=== PATIENT | female | born 1990 | race American Indian/Alaskan Native ===

== ENCOUNTER 2019-10-18 14:56 | Outpatient (CLI) | payer MEDICAID ==
[2019-10-18] MEDS ORDERED: BETAMET ACET/BETAMET NA PH 6 MG/ML INJ 5 ML MDV IM ONE (17:56)
== END 2019-10-18 18:36 | disposition home or self-care (01) ==
LOC: TRG 14:56
PROVIDERS: ATTEND Obstetrics & Gynecology
DX: O47.03 False labor before 37 completed weeks of gestation, third trimester (principal); Z3A.30 30 weeks gestation of pregnancy
CPT/HCPCS: J0702

== ENCOUNTER 2019-11-16 18:44 | Outpatient (CLI) | payer MEDICAID ==
[2019-11-16 19:39] VITALS: BP 119/75
== END 2019-11-16 19:52 | disposition home or self-care (01) ==
LOC: TRG 18:44
PROVIDERS: ATTEND Obstetrics & Gynecology
DX: O13.3 Gestational [pregnancy-induced] hypertension without significant proteinuria, third trimester (principal); O47.03 False labor before 37 completed weeks of gestation, third trimester; Z3A.35 35 weeks gestation of pregnancy
CPT/HCPCS: 59025

== ENCOUNTER 2019-11-27 12:09 | Outpatient (CLI) | payer MEDICAID ==
[2019-11-27] MEDS ORDERED: LACTATED RINGERS 1,000 ML IV SCH (13:00)
[2019-11-27 13:40] LABS: Hematocrit 35.3 % (30.3-42.9); Mean Corpuscular HGB Conc 34 % (30-34); Mean Corpuscular Volume 91 fl (79-97); Platelet Count 195 K/mm3 (140-440); Red Blood Count 3.88 M/mm3 (3.65-5.03); Red Cell Distribution Width 12.6 % (13.2-15.2)
[2019-11-27 13:44] LABS: Bilirubin,Urine NEG (Negative); Blood,Urine NEG (Negative); Color,Urine Straw (Yellow); Protein,Urine <15 mg/dL mg/dL (Negative); Urobilinogen,Urine < 2.0 mg/dL (<2.0); WBC,Urine < 1.0 /HPF (0.0-6.0)
[2019-11-27 14:04] LABS: Uric Acid 3.6 mg/dL (3.5-7.6)
[2019-11-27 14:12] LABS: Alanine Aminotransferase < 5 units/L (7-56)
[2019-11-27 14:25] VITALS: BP 126/85
== END 2019-11-27 14:57 | disposition home or self-care (01) ==
LOC: TRG 12:09
PROVIDERS: ATTEND Obstetrics & Gynecology
DX: O13.3 Gestational [pregnancy-induced] hypertension without significant proteinuria, third trimester (principal); O47.03 False labor before 37 completed weeks of gestation, third trimester; Z3A.36 36 weeks gestation of pregnancy
CPT/HCPCS: 36415; 59025; 81001; 82565; 83615; 84450; 84460; 84550; 85027; 96360; 96361; J7120

== ENCOUNTER 2019-12-03 19:35 | Inpatient (IN) | payer MEDICAID ==
[2019-12-03 22:42] LABS: Hematocrit 35.8 % (30.3-42.9); Hemoglobin 12.5 gm/dl (10.1-14.3); Mean Corpuscular HGB Conc 35 % (30-34); Mean Corpuscular Volume 91 fl (79-97); Platelet Count 209 K/mm3 (140-440); Red Blood Count 3.95 M/mm3 (3.65-5.03); Red Cell Distribution Width 12.9 % (13.2-15.2)
[2019-12-03] MEDS ORDERED: ONDANSETRON 4 MG/2 ML INJ IV PRN (23:29)
[2019-12-03] MEDS ORDERED: NALOXONE 0.4 MG/1 ML INJ IV PRN (23:29)
[2019-12-03] MEDS ORDERED: LIDOCAINE (2%) 20 MG/1 ML VIAL 20 ML MDV INFILTRATI ONE (23:29)
[2019-12-03] MEDS ORDERED: ePHEDrine SULFATE 50 MG/1 ML INJ IV PRN (23:29)
[2019-12-03] MEDS ORDERED: fentaNYL 100 MCG/2 ML INJ IV PRN (23:29)
[2019-12-03] MEDS ORDERED: TERBUTALINE 1 MG/1 ML INJ IVP PRN (23:29)
[2019-12-03] MEDS ORDERED: TERBUTALINE 1 MG/1 ML INJ SUB-Q PRN (23:29)
[2019-12-03] MEDS ORDERED: BUTORPHANOL 2 MG/1 ML INJ IV PRN (23:29)
[2019-12-03] MEDS ORDERED: MINERAL OIL 30 ML ORAL LIQD PO PRN (23:29)
[2019-12-03] MEDS ORDERED: OXYTOCIN DRIP 30 UNITS/500 ML BAG IV SCH (23:45)
[2019-12-03] MEDS ORDERED: LACTATED RINGERS 1,000 ML IV SCH (23:45)
[2019-12-03] MEDS ORDERED: OXYTOCIN 20 UNIT/1000ML DRIP 20 UNITS/1,000 ML BAG IV SCH (23:45)
--- NOTE | 2019-12-03 23:52 | History and Physical Report ---
History of Present Illness Date of examination: 12/03/19 Date of admission: 12/03/19 19:35 Chief complaint: scheduled induction History of present illness: Pt is a 29 year old -Stateless female CHRISTIAN 12/21/19 at 37w4d who presents for scheduled induction of labor secondary to gestational hypertension. She reports irregular contractions but denies vaginal bleeding or leakage of fluid. 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 She is GBS negative. Past History Past Medical History: other (Idiopathic joint swelling ) Past Surgical History: no surgical history Family/Genetic History: diabetes, hypertension Social history: no significant social history - Obstetrical History Expected Date of Delivery: 12/21/19 Actual Gestation: 37 Week(s) 4 Day(s) : 7 Para: 1 Hx # Term Pregnancies: 5 Number of Pregnancies: 0 Spontaneous Abortions: 0 Induced : 0 Number of Living Children: 6 Medications and Allergies Allergies Allergy/AdvReac Type Severity Reaction Status Date / Time No Known Allergies Allergy Verified 10/17/19 12:10 Home Medications Medication Instructions Recorded Confirmed Last Taken Type predniSONE [Deltasone] 40 mg PO QDAY #10 tab 06/11/15 12/03/19 11/19/19 Rx Ibuprofen [Motrin 600 MG tab] 600 mg PO PRN PRN 12/03/19 12/03/19 Unknown History 148/Iron/Folate 6/Dha 148 mg PO QDAY 12/03/19 12/03/19 12/02/19 History [Tendera-Ob Softgel] Active Meds: Active Medications Butorphanol Tartrate (Stadol) 2 mg IV Q2H PRN PRN Reason: Pain , Severe (7-10) Ephedrine Sulfate (Ephedrine Sulfate) 10 mg IV Q2M PRN PRN Reason: Hypotension Fentanyl (Sublimaze) 100 mcg IV Q2H PRN PRN Reason: Labor Pain Oxytocin/Sodium Chloride (Pitocin/Ns 20 Unit/1000ml Drip) 20 units in 1,000 mls @ 125 mls/hr IV DIRECT PEPITO Oxytocin/Sodium Chloride (Pitocin/Ns 30 Unit/500ml) 30 units in 500 mls @ 4 mls/hr IV TITR PEPITO; Protocol Lactated Ringer's (Lactated Ringers) 1,000 mls @ 125 mls/hr IV DIRECT PEPITO Mineral Oil (Mineral Oil) 30 ml PO QHS PRN PRN Reason: Constipation Naloxone HCl (Naloxone) 0.1 mg IV Q2MIN PRN PRN Reason: Res Rate </= 8 or 02 SAT < 92% Ondansetron HCl (Zofran) 4 mg IV Q8H PRN PRN Reason: Nausea And Vomiting Terbutaline Sulfate (Brethine) 0.25 mg SUB-Q ONCE PRN PRN Reason: Hyperstimulation/Hypertonicity Terbutaline Sulfate (Brethine) 0.25 mg IVP ONCE PRN PRN Reason: Hyperstimulation/Hypertonicity Review of Systems All systems: negative - Vital Signs Vital signs: Vital Signs Pulse BP 92 H 126/87 12/03/19 20:14 12/03/19 20:14 Temp Pulse Resp BP Pulse Ox 97.8 F 82 18 134/92 12/03/19 22:31 12/03/19 23:39 12/03/19 22:31 12/03/19 23:39 - Physical Exam Abdomen: Positive: soft (obese, gravid) Uterus: Positive: enlarged (gravid ) - Obstetrical FHR: category 2 Uterine Contraction Monitor Mode: External Cervical Dilatation: 4 Cervical Effacement Percentage: 60 station: -2 Uterine Contraction Pattern: Irregular Uterine Tone Measurement Phase: Resting Uterine Contraction Intensity: Moderate Results Result Diagrams: 12/03/19 22:10 Abnormal lab results 12/03/19 Range/Units 22:10 MCHC 35 H (30-34) % RDW 12.9 L (13.2-15.2) % All other labs normal. Assessment and Plan A: IUP at 37w4d GHTN Idiopathic joint swelling Grandmultiparity h/o delivery x 5 Three sons with autism Abnormal quad with normal NIPT H/o shoulder dystocia GBS Negative P: Admit to labor and delivery Pitocin induction Routine intrapartum care
--- NOTE | 2019-12-04 02:34 | Event Note ---
Date: 12/04/19 Pt more uncomfortable with contractions. Category II tracing. SVE: /-2. AROM- copious amount of clear fluid. Routine intrapartum care. Pt desires epidural.
[2019-12-04] MEDS ORDERED: DEXMEDETOMIDINE 200 MCG/2 ML VIAL IV ONE (02:52)
[2019-12-04] MEDS ORDERED: ePHEDrine SULFATE 50 MG/1 ML INJ IV PRN (03:10)
[2019-12-04] MEDS ORDERED: NALOXONE 2 MG/2 ML INJ IV PRN (03:10)
--- NOTE | 2019-12-04 03:12 | Anesthesia Consultation ---
Anesthesia Consult and Med Hx Date of service: 12/04/19 - Airway Anesthetic Teeth Evaluation: Good ROM Head & Neck: Adequate Mental/Hyoid Distance: Adequate Mallampati Class: Class II Intubation Access Assessment: Probably Good - Pulmonary Exam CTA: Yes - Cardiac Exam Cardiac Exam: RRR - Pre-Operative Health Status ASA Pre-Surgery Classification: ASA3 Proposed Anesthetic Plan: Epidural - Pulmonary Hx Asthma: No COPD: No Hx Pneumonia: No - Cardiovascular System Hx Hypertension: Yes (ghtn) - Central Nervous System Hx Seizures: No Hx Psychiatric Problems: No - Endocrine Hx Renal Disease: No Hx End Stage Renal Disease: No Hx Non-Insulin Dependent Diabetes: Yes Hx Hypothyroidism: No Hx Hyperthyroidism: No - Hematic Hx Anemia: No Hx Sickle Cell Disease: No - Other Systems Hx Alcohol Use: Yes
[2019-12-04] MEDS ORDERED: miSOPROStol 200 MCG TAB ONE (03:33)
[2019-12-04] MEDS ORDERED: fentaNYL-BUPIV 2 MCG/ML-0.125% 200 MCG/100 ML BAG EPIDURAL SCH (04:00)
--- NOTE | 2019-12-04 04:01 | Procedure Note ---
OB Delivery Note - Delivery Date of Delivery: 12/04/19 Surgeon: DENNY FREEMAN Estimated blood loss: 500cc - Vaginal Delivery presentation: vertex Delivery position: OA Intrapartum events: gestational hypertension, uterine atony Delivery induction: oxytocin Delivery augmentation: rupture of membranes Delivery monitor: external FHT, external uterine Route of delivery: Delivery placenta: spontaneous Delivery cord: 3 umbilical vessels Episiotomy: none Delivery laceration: other (Perineal abrasion hemostatic without repair ) Anesthesia: epidural - A at 1 minute: 8 at 5 minutes: 9 Infant Gender: Male (4081g (9lb 0oz) @ 0339 am)
[2019-12-04] MEDS ORDERED: miSOPROStol 200 MCG TAB PR ONE (04:05)
[2019-12-04] MEDS ORDERED: BENZOCAINE/MENTHOL 20/0.5% TOP SPRAY 56 GM TP PRN (06:44)
[2019-12-04] MEDS ORDERED: LANOLIN/ZINC/DIMETHICONE (LANSINOH) 7 GM TP PRN ×2 (06:44)
[2019-12-04] MEDS ORDERED: ONDANSETRON 4 MG/2 ML INJ IV PRN (06:44)
[2019-12-04] MEDS ORDERED: diphenhydrAMINE 25 MG CAP PO PRN (06:44)
[2019-12-04] MEDS ORDERED: PROMETHAZINE 25 MG TAB PO PRN (06:44)
[2019-12-04] MEDS ORDERED: MAGNESIUM HYDROXIDE (MOM) ORAL LIQD UDC PO PRN (06:44)
[2019-12-04] MEDS ORDERED: OXYTOCIN 20 UNIT/1000ML DRIP 20 UNITS/1,000 ML BAG IV SCH (06:44)
[2019-12-04] MEDS ORDERED: PROMETHAZINE 25 MG RECT SUPP PR PRN (06:44)
[2019-12-04] MEDS ORDERED: WITCH HAZEL/ GLYCERIN PAD TP PRN (06:44)
[2019-12-04] MEDS ORDERED: ACETAMINOPHEN 325 MG TAB PO PRN (06:44)
[2019-12-04] MEDS: IBUPROFEN 800 MG TAB PO SCH ×2 (12:35→18:40)
[2019-12-04] MEDS: HYDROcodone/ACETAMINOPHEN 5-325 MG TAB PO PRN ×2 (12:35→22:30)
[2019-12-04 16:24] LABS: Hematocrit 31.1 % (30.3-42.9); Hemoglobin 10.7 gm/dl (10.1-14.3)
--- NOTE | 2019-12-04 16:44 | Post Anesthesia Evaluation ---
- Post Anesthesia Evaluation Patient Participated: Yes Airway Patent: Yes Stable Respiratory Function: Yes Nausea/Vomiting: No Temp > 96.8F: Yes Pain Manageable: Yes Adequeate Hydration: Yes Anesthesia Complications: No Block Receding Appropriately: Yes
[2019-12-05] MEDS: IBUPROFEN 800 MG TAB PO SCH (05:14)
[2019-12-05] MEDS ORDERED: TETANUS,DIPH,PERTUSS(ACELL) VACCINE 0.5 ML SYRINGE IM ONE (06:00)
[2019-12-05] MEDS ORDERED: MEASLES, MUMPS & RUBELLA 12,500 UNIT/0.5 ML VACCINE SUB-Q ONE (06:00)
--- NOTE | 2019-12-05 08:31 | Progress Note ---
Assessment and Plan A: PPD#1 s/p at term secondary to gestational hypertension P: Discharge today per pt request with follow up next week for BP check and to discuss contraceptive options Subjective - Subjective Date of service: 12/05/19 Principal diagnosis: at term Interval history: No overnight events. Pt asks to be discharged today. Patient reports: appetite normal, voiding normally, pain well controlled, ambulating normally : doing well Objective - Vital Signs Latest vital signs: Vital Signs Temp Pulse Resp BP Pulse Ox 12/04/19 23:15 98.2 F 84 20 110/59 99 12/04/19 16:21 98.6 F 83 20 133/72 99 12/04/19 12:45 98.3 F 97 H 16 112/71 99 12/04/19 08:42 98.3 F 92 H 20 117/77 99 Intake and Output 12/04/19 12/05/19 12/05/19 22:59 06:59 14:59 Intake Total 240 240 Balance 240 240 Intake: Oral 240 240 Other: Total, Intake Amount 240 240 # Voids Void 1 1 - Exam Breasts: Present: deferred Cardiovascular: Present: Regular rate Lungs: Present: Clear to auscultation Abdomen: Present: soft (obese ) Uterus: Present: fundal height at umbilicus Extremities: Present: edema (trace)
--- NOTE | 2019-12-05 08:35 | Discharge Summary ---
Providers - Providers Date of Admission: 12/03/19 19:35 Date of discharge: 12/05/19 Attending physician: DENNY FREEMAN Primary care physician: DENNY FREEMAN Hospitalization Reason for admission: induction of labor Delivery: Procedure details: Please see delivery note. Episiotomy: none Laceration: 1st degree (perineal abrasion, hemostatic without repair ) Other procedures: none complications: none Discharge diagnosis: IUP at term delivered [place] baby: male Hospital course: Patient was admitted for induction of labor secondary to gestational hype rtension. She went on to have a spontaneous vaginal delivery which he tolerated well. Her course was uncomplicated and she met discharge criteria on day #1. She will follow-up in a week for blood pressure check and to discuss contraceptive options. Condition at discharge: Stable Disposition: -01 TO HOME OR SELFCARE - Discharge Diagnoses (1) Term of male Status: Acute (2) Obesity (BMI 30.0-34.9) Status: Acute (3) Anemia Status: Acute Qualifiers: Anemia type: unspecified type Qualified Code(s): D64.9 - Anemia, unspecified Plan - Discharge Medications Prescriptions: Ferrous Sulfate [Feosol 325 MG tab] 325 mg PO BID #60 tablet Ibuprofen [Motrin] 800 mg PO Q8HR PRN #30 tablet PRN Reason: Pain, Moderate (4-6) HYDROcodone/APAP 5-325 [[place] 5/325] 1 each PO Q6HR PRN #20 tablet PRN Reason: Pain - Provider Discharge Summary Activity: routine, no sex for 6 weeks, no heavy lifting 4 weeks, no strenuous exercise Diet: routine Instructions: routine Additional instructions: [] Smoking cessation referral if applicable(refer to patient education folder for contact #) [] Refer to [facility] Booklet Call your doctor immediately for: * Fever > 100.5 * Heavy vaginal bleeding ( >1 pad per hour) * Severe persistent headache * Shortness of breath * Reddened, hot, painful area to leg or breast * Drainage or odor from incision. * Keep incision clean and dry at all times and follow doctor's instructions regarding bathing/showering Please schedule your son circumcision before he is 1 month old. - Follow up plan Follow up: RAMO ALMARAZ MD [Staff Physician] - 7 Days
[2019-12-05 13:30] VITALS: BP 128/77
== END 2019-12-05 14:00 | disposition home or self-care (01) | DRG 775 ==
LOC: LD 19:35 → OB 12-04 06:22 → UNDODISIN 12-05 13:30 → OB 12-05 13:39
PROVIDERS: ADMIT Obstetrics & Gynecology; ATTEND Obstetrics & Gynecology
PROC: 10E0XZZ Delivery of Products of Conception, External Approach (ICD-10-PCS; principal; 2019-12-04)
PROC: 3E033VJ Introduction of Other Hormone into Peripheral Vein, Percutaneous Approach (ICD-10-PCS; 2019-12-04)
PROC: 3E0R3BZ Introduction of Anesthetic Agent into Spinal Canal, Percutaneous Approach (ICD-10-PCS; 2019-12-04)
PROC: 00HU33Z Insertion of Infusion Device into Spinal Canal, Percutaneous Approach (ICD-10-PCS; 2019-12-04)
PROC: 10907ZC Drainage of Amniotic Fluid, Therapeutic from Products of Conception, Via Natural or Artificial Opening (ICD-10-PCS; 2019-12-04)
PROC: 3E0234Z Introduction of Serum, Toxoid and Vaccine into Muscle, Percutaneous Approach (ICD-10-PCS; 2019-12-05)
PROC: 3E0134Z Introduction of Serum, Toxoid and Vaccine into Subcutaneous Tissue, Percutaneous Approach (ICD-10-PCS; 2019-12-05)
DX: O13.4 Gestational [pregnancy-induced] hypertension without significant proteinuria, complicating childbirth (principal); O70.0 First degree perineal laceration during delivery; O99.214 Obesity complicating childbirth; E66.9 Obesity, unspecified; O99.314 Alcohol use complicating childbirth; O62.2 Other uterine inertia; M25.48 Effusion, other site; O99.02 Anemia complicating childbirth; Z23 Encounter for immunization; Z72.89 Other problems related to lifestyle; Z3A.37 37 weeks gestation of pregnancy; Z37.0 Single live birth; Z82.49 Family history of ischemic heart disease and other diseases of the circulatory system; Z83.3 Family history of diabetes mellitus; Z79.899 Other long term (current) drug therapy
CPT/HCPCS: 36415; 85014; 85018; 85027; 86592; 86850; 86900; 86901; 88307; 90471; 90715; G0378; J2590; J3490; J7120